=== PATIENT | male | born 1970 | race Caucasian/White ===

== ENCOUNTER 2019-01-24 06:06 | Inpatient (IN) | payer OTHER ==
[~2019-01-24] VITALS: Ht 185.4 cm; Wt 89.1 kg
[~2019-01-24 06:06] MED LIST: ACETAMINOPHEN500 MG PO; CELE200 PO
--- NOTE | 2019-01-24 06:56 | NUR ---
History, Chart, Medications and Allergies reviewed before start of procedure. Patient confirms NPO status and agrees with scheduled surgery. Lungs clear T/O to Auscultation. Patient reports completing Chlorhexadine shower X5 AND ABX NARES OINTMENT prior to admission to hospital.
--- NOTE | 2019-01-24 07:31 | NUR ---
PATIENT UP TO BR FOR UNMEASURED VOID. DISCUSSED H&H WITH DR MCCOY, WILL PROCEED WITHOUT T&S. NASAL SWABS TO BILATERAL NARES IN SDS.
--- NOTE | 2019-01-24 08:21 | NUR ---
01/24/19 0821 Vianney Guajardo PT USED RESTROOM PRIOR TO ENTERING OR.
--- NOTE | 2019-01-24 14:46 | NUR ---
PT PERMISSION PT GAVE PERMISSION FOR ROSANNE MASON TO PROVIDE CARE FOR HIM ON 01/25/19 FROM [phone].
--- NOTE | 2019-01-24 18:39 | NUR ---
SHIFT SUMMARY PT HAS DONE WELL POST OP, TOLERATING DIET, VOIDING EASILY, PAIN WELL CONTROLLED, WORKED WITH THERAPY, AND AMBULATED IN HALLWAY. HAD BRIEF MOMENT OF HYPOTENSION BUT WAS ASYMPTOMATIC.
[2019-01-25 05:09] LABS: BASOPHILS ABSOLUTE AUTO 0.01 K/mm3 (0.00-0.23); BASOPHILS PERCENT AUTO 0 % (0-2); EOSINOPHILS ABSOLUTE AUTO 0.02 K/mm3 (0.00-0.68); EOSINOPHILS PERCENT AUTO 0 % (0-6); Hematocrit 30.2 % (37.0-53.0); IMMATURE GRAN ABSOLUTE AUTO 0.04 K/mm3 (0.00-0.10); IMMATURE GRAN PERCENT AUTO 0 % (0-1); LYMPHOCYTES ABSOLUTE AUTO 2.02 K/mm3 (0.84-5.20); LYMPHOCYTES PERCENT AUTO 16 % (21-46); MONOCYTES ABSOLUTE AUTO 1.16 K/mm3 (0.16-1.47); MONOCYTES PERCENT AUTO 9 % (4-13); Mean Corpuscular HGB 30.8 pg (26.0-34.0); Mean Corpuscular HGB Conc 33.1 g/dL (31.5-36.5); Mean Corpuscular Volume 93 fL (80-100); NEUTROPHILS ABSOLUTE AUTO 9.06 K/mm3 (1.96-9.15); NEUTROPHILS PERCENT AUTO 74 % (41-73); Platelet Count 186 K/mm3 (150-400); RDW Coefficient Variation 11.3 % (11.7-14.2); Red Blood Cell Count 3.25 M/mm3 (4.30-5.90); White Blood Cell Count 12.31 K/mm3 (4.00-11.30)
[2019-01-25 05:33] LABS: Anion Gap 4 mmol/L (6-16); Blood Urea Nitrogen 17 mg/dL (8-24); Bun/Creatinine Ratio 22.2 (12.0-20.0); CO2, Blood 30 mmol/L (21-32); Calcium, Blood 8.6 mg/dL (8.5-10.1); Chloride, Blood 106 mmol/L (98-108); Creatinine, Blood 0.77 mg/dL (0.60-1.20); Glomerular Filtration Rate >60 (60-); Glucose, Blood 117 mg/dL (70-99); Potassium, Blood 3.9 mmol/L (3.5-5.5); Sodium, Blood 140 mmol/L (136-145)
[2019-01-25] MEDS ORDERED: OXYC5 PO (14:36)
--- NOTE | 2019-01-25 15:00 | NUR ---
DISCHARGE SUMMARY PT A&OX4, VSS, LEFT FLOOR VIA WC WITH ALL PERSONAL POSSESSIONS INCLUDING DISCHARGE PACKET AND 1 NARC SCRIPT, TO GO HOME WITH . DISCHARGE INSTRUCTIONS PROVIDED TO PT AND . THEY ACK UNDERSTANDING THOSE INSTRUCTIONS INCLUDING AQUACEL DRESSING CHANGES, 2 WK FU WITH SURGEON, PAIN MANAGEMENT, OK TO SHOWER, NO TUB BATHS/JACUZZI. IV DC'D.
== END 2019-01-25 15:17 | disposition home or self-care (01) | DRG 470 ==
LOC: SURS 06:06 → PRE IP 07:30 → SURS 11:26
PROVIDERS: ADMIT Orthopaedic Surgery
PROC: 0SR90JZ Replacement of Right Hip Joint with Synthetic Substitute, Open Approach (ICD-10-PCS; principal; 2019-01-24 07:30)
DX: M87.051 Idiopathic aseptic necrosis of right femur (principal); F17.210 Nicotine dependence, cigarettes, uncomplicated
CPT/HCPCS: 36415; 72170; 80048; 85025; 97110; 97116; 97162; 97530; C1713; C1776; J0171; J0690; J0735; J1100; J1885; J2250; J2370; J2405; J2704; J2795; J3010; J7120

== ENCOUNTER 2020-09-23 06:11 | Day surgery (SDC) | payer OTHER ==
[~2020-09-23] VITALS: Ht 185.4 cm; Wt 91.1 kg
[~2020-09-23 06:11] MED LIST changes: +OXYC5 PO
--- NOTE | 2020-09-23 07:17 | NUR ---
Ambulatory in Day Surgery. Surgical site prepped with 2% Chlorhexidine cloth wipe. History, Chart, Medications and Allergies reviewed before start of procedure.Lungs clear T/O to Auscultation. Patient confirms NPO status and agrees with scheduled surgery. Pre-Op teaching done. Pt verbalizes understanding. Patient States Post-Procedure ride home has been arranged. Patient reports completing Chlorhexadine shower X2 prior to admission to hospital.
--- NOTE | 2020-09-23 18:57 | NUR ---
PT HAS BEEN STABLE POST OP. PAIN WELL CONTROLLED WITH PRN AND SCHEDULED MEDS. PT WORKED WELL WITH STAFF AND THERAPY TO AMBULATE AND SIT IN CHAIR. PT RACHANA DIET WELL AND DRINKING FLUIDS. VOIDING WELL. SL FLUIDS PER ORDERS. PAS, TEDS AND POLAR PACK IN PLACE. PROBABLE DC TO HOME TOMORROW.
--- NOTE | 2020-09-23 22:55 | NUR ---
PATIENT IS ABLE TO REPOSITION SELF IN CHAIR, UP IN ROOM AND ALFARO WITH FWW INDEPENDENTLY. MODERATE PAIN MEDICATED WITH PO MEDS WITH GOOD RESULTS. CALL LIGHT IN REACH.
--- NOTE | 2020-09-24 05:20 | NUR ---
PATIENT HAS HAD LITTLE SLEEP TONIGHT. PAIN HAS BEEN CONTROLLED WITH ONE PRN OXYCODONE AT BEGINNING OF SHIFT AND SCHEDULED TORODOL AND TYLENOL. INDEPENDENT IN THE ROOM AND TO BR WITH FWW. VOIDING AND DRINKING WELL. POLAR PACK TO LT HIP, AQUACELL IS CLEAN AND DRY ON ANT HIP. FULL SENSATION TO LE'S NO TINGLING. CALL LIGHT IN REACH. NO ACUTE CHANGES.
[2020-09-24 05:32] LABS: BASOPHILS ABSOLUTE AUTO 0.01 K/mm3 (0.00-0.23); BASOPHILS PERCENT AUTO 0 % (0-2); EOSINOPHILS PERCENT AUTO 0 % (0-6); Hematocrit 31.6 % (37.0-53.0); Hemoglobin 10.6 g/dL (13.5-17.5); IMMATURE GRAN ABSOLUTE AUTO 0.06 K/mm3 (0.00-0.10); IMMATURE GRAN PERCENT AUTO 0 % (0-1); LYMPHOCYTES ABSOLUTE AUTO 1.36 K/mm3 (0.84-5.20); LYMPHOCYTES PERCENT AUTO 8 % (21-46); MONOCYTES ABSOLUTE AUTO 1.13 K/mm3 (0.16-1.47); MONOCYTES PERCENT AUTO 7 % (4-13); Mean Corpuscular HGB 29.7 pg (26.0-34.0); Mean Corpuscular HGB Conc 33.5 g/dL (31.5-36.5); Mean Corpuscular Volume 89 fL (80-100); Mean Platelet Volume 9.3 fL (9.1-12.4); NEUTROPHILS ABSOLUTE AUTO 14.03 K/mm3 (1.96-9.15); NEUTROPHILS PERCENT AUTO 85 % (41-73); Platelet Count 235 K/mm3 (150-400); RDW Coefficient Variation 11.5 % (11.7-14.2); RDW Standard Deviation 36.8 fL (35.1-46.3); Red Blood Cell Count 3.57 M/mm3 (4.30-5.90); White Blood Cell Count 16.59 K/mm3 (4.00-11.30)
[2020-09-24 05:55] LABS: Magnesium, Blood 2.2 mg/dL (1.6-2.4)
[2020-09-24 05:56] LABS: Anion Gap 5 mmol/L (6-16); Blood Urea Nitrogen 16 mg/dL (8-24); Bun/Creatinine Ratio 19.5 (12.0-20.0); CO2, Blood 30 mmol/L (21-32); Chloride, Blood 105 mmol/L (98-108); Creatinine, Blood 0.82 mg/dL (0.60-1.20); Glomerular Filtration Rate >60 (60-); Glucose, Blood 114 mg/dL (70-99); Potassium, Blood 4.3 mmol/L (3.5-5.5); Sodium, Blood 140 mmol/L (136-145)
[2020-09-24] MEDS ORDERED: ACET500 PO (09:29)
[2020-09-24] MEDS ORDERED: ASPI81CH PO (09:29)
[2020-09-24] MEDS ORDERED: OXYC5 PO (09:30)
--- NOTE | 2020-09-24 11:30 | NUR ---
DISCHARGE CLEARED THERAPY, PAIN WELL MANAGED. EATING/DRINKING/VOIDING. SCRIPT, DRSGS, & VINH PACK SENT. ESCORTED OUT VIA WC W/ AT SIDE FOR DC.
== END 2020-09-24 11:30 | disposition home or self-care (01) ==
LOC: ORSCMMR 06:11 → ORD 07:30 → ORSCMMR 07:30 → SURS 11:00 → ORSCMMR 09-24 11:30
PROVIDERS: Orthopaedic Surgery
PROC: 0SRB0JA Replacement of Left Hip Joint with Synthetic Substitute, Uncemented, Open Approach (ICD-10-PCS; principal; 2020-09-23 07:30)
DX: M16.12 Unilateral primary osteoarthritis, left hip (principal); Z87.891 Personal history of nicotine dependence
CPT/HCPCS: 72170; 80048; 83735; 85025; 88300; 97110-CQ; 97116-CQ; 97162; 97530; 97530-CQ; A9270; A9270-GY; C1713; C1776; J0171; J0690; J0735; J1100; J1885; J2250; J2405; J2704; J2795; J3010; J7120

== ENCOUNTER 2022-12-15 10:38 | Day surgery (SDC) | payer OTHER ==
[~2022-12-15] VITALS: Ht 185.4 cm; Wt 86.6 kg
[~2022-12-15 10:38] MED LIST changes: +ACET500 PO; +ASPI81CH PO
== END 2022-12-15 13:04 | disposition home or self-care (01) ==
LOC: ORSCSDS 10:38
PROVIDERS: Internal Medicine Gastroenterology
PROC: 0DBP8ZX Excision of Rectum, Via Natural or Artificial Opening Endoscopic, Diagnostic (ICD-10-PCS; principal; 2022-12-15 12:00)
PROC: 0DBL8ZX Excision of Transverse Colon, Via Natural or Artificial Opening Endoscopic, Diagnostic (ICD-10-PCS; principal; 2022-12-15 12:00)
DX: K62.5 Hemorrhage of anus and rectum (principal); R63.4 Abnormal weight loss; D12.3 Benign neoplasm of transverse colon; K62.1 Rectal polyp; K64.8 Other hemorrhoids; I10 Essential (primary) hypertension; F17.210 Nicotine dependence, cigarettes, uncomplicated; J43.9 Emphysema, unspecified
CPT/HCPCS: 88305; J2704; J7120

== ENCOUNTER 2023-08-26 10:30 | Day surgery (SDC) | payer OTHER ==
[~2023-08-26] VITALS: Ht 185.4 cm; Wt 87.6 kg
--- NOTE | 2023-08-26 13:06 | NUR ---
08/26/23 1306 RERE GIRALDO IV DC @ [id number].
[2023-08-26 13:08] VITALS: BP 137/88
== END 2023-08-26 13:03 | disposition home or self-care (01) ==
LOC: ORSCSDS 10:30
PROVIDERS: Internal Medicine Gastroenterology
PROC: 0DB68ZX Excision of Stomach, Via Natural or Artificial Opening Endoscopic, Diagnostic (ICD-10-PCS; principal; 2023-08-26 11:45)
PROC: 0DB58ZX Excision of Esophagus, Via Natural or Artificial Opening Endoscopic, Diagnostic (ICD-10-PCS; principal; 2023-08-26 11:45)
PROC: 0DB98ZX Excision of Duodenum, Via Natural or Artificial Opening Endoscopic, Diagnostic (ICD-10-PCS; principal; 2023-08-26 11:45)
DX: R63.4 Abnormal weight loss (principal); D64.9 Anemia, unspecified; I10 Essential (primary) hypertension; E78.5 Hyperlipidemia, unspecified; J44.9 Chronic obstructive pulmonary disease, unspecified; F17.210 Nicotine dependence, cigarettes, uncomplicated
CPT/HCPCS: 88305; 88342; J2704; J7120